=== PATIENT | male | born 1990 | race African-American/Black ===

== ENCOUNTER 2018-01-03 12:45 | Emergency (ER) | payer SELFPAY ==
[~2018-01-03] VITALS: Ht 188 cm; Wt 72.7 kg
[~2018-01-03 12:45] MED LIST: ACULAR 0.5100 DROP/5 RIGHT EYE; AUGMENTIN500 MG PO; BACTRIM,SEPT1 TABLET PO; CLARITIN10 M4 PO; FLEXERIL10 MG PO; Habitrol,Nicoderm CQ TD; IBUPROFEN800 MG PO; Keflex PO; MOBIC15 MG PO; MOBIC7.5 MG PO; MOTRIN800 MG PO; NO MEDS; NOHOMEMEDS; PERCOCET 5/31 TABLET PO; TOBREX3.5 GM BOTH EYES; TYLENOL REGULA325 MG PO; TYLENOL WITH C1 EACH PO; ULTRAM50 MG PO; VALIUM5 MG PO; VICODIN 5-3001 EACH PO; VIGAMOX 0.60 DROP/3 RIGHT EYE; no home med; non; oxyCODONE PO
[2018-01-03 15:14] VITALS: BP 109/79
== END 2018-01-03 15:16 | disposition home or self-care (01) ==
LOC: EME 12:45
DX: S93.602A Unspecified sprain of left foot, initial encounter (principal); V09.9XXA Pedestrian injured in unspecified transport accident, initial encounter; Z88.6 Allergy status to analgesic agent
CPT/HCPCS: 73610; 73630; 99281; 99283

== ENCOUNTER 2018-03-11 14:00 | Inpatient (IN) | payer OTHER ==
[~2018-03-11] VITALS: Ht 186.7 cm; Wt 60.0 kg
[2018-03-11 15:14] LABS: HEMATOCRIT 42.7 % (38.0-50.0); HEMOGLOBIN 15.6 G/DL (12.5-16.6); MCH 34.7 PG (29.0-34.0); MCHC 36.5 G/DL (30.0-36.0); MCV 95.1 FL (86-99); PLATELET COUNT 296 K/uL (156-360); RBC DIS.WIDTH-CV 11.7 % (11.8-14.6); RBC DIS.WIDTH-SD 40.8 % (39-53); RED BLOOD COUNT 4.49 M/uL (4.00-5.50); WHITE BLOOD COUNT 21.7 K/uL (4.1-10.2)
[2018-03-11 15:22] LABS: ALBUMIN 4.1 g/dL (3.2-4.8)
[2018-03-11 15:23] LABS: CHLORIDE 98 mEq/L (99-109); POTASSIUM 4.2 mEq/L (3.7-5.4); SODIUM 133 mEq/L (136-147)
[2018-03-11 15:25] LABS: GLUCOSE 91 mg/dL (70-99)
[2018-03-11 15:27] LABS: TOTAL BILIRUBIN 0.8 mg/dL (0.0-1.0)
[2018-03-11 15:28] LABS: ALKALINE PHOSPHATASE 134 IU/L (3-129)
[2018-03-11 15:29] LABS: CREATININE 0.7 mg/dL (0.6-1.3); GFR ESTIMATE (CALCULATED) > 59 mL/min/ (58.99-99999)
[2018-03-11 15:30] LABS: AST (GOT) 16 IU/L (2-34); UREA NITROGEN (BUN) 7 mg/dL (9-23)
[2018-03-11 15:32] LABS: ALT (GPT) 15 IU/L (3-49)
[2018-03-11 20:38] VITALS: BP 164/90
[2018-03-11 22:40] VITALS: BP 134/85
[2018-03-12 07:04] VITALS: BP 120/74
[2018-03-12 12:29] LABS: BASOPHIL (%) 0.2 % (0-1); EOSINOPHIL (%) 0.1 % (0-5); HEMATOCRIT 40.9 % (38.0-50.0); HEMOGLOBIN 14.2 G/DL (12.5-16.6); IMMATURE GRANULOCYTE (%) 0.5 % (0.0-0.7); LYMPHOCYTE (%) 8.1 % (15-42); LYMPHOCYTE COUNT 1.3 K/uL (1.0-2.8); MCH 33.7 PG (29.0-34.0); MCHC 34.7 G/DL (30.0-36.0); MCV 97.1 FL (86-99); MONOCYTE (%) 7.8 % (3-12); MONOCYTE COUNT 1.2 K/uL (0-0.8); NEUTROPHIL (%) 83.3 % (45-76); NEUTROPHIL COUNT 12.9 K/uL (1.8-6.4); PLATELET COUNT 287 K/uL (156-360); RBC DIS.WIDTH-CV 11.9 % (11.8-14.6); RBC DIS.WIDTH-SD 42.2 % (39-53); RED BLOOD COUNT 4.21 M/uL (4.00-5.50); WHITE BLOOD COUNT 15.5 K/uL (4.1-10.2)
[2018-03-12 13:00] LABS: CHLORIDE 105 MEQ/L (99-109); CREATININE 0.7 MG/DL (0.6-1.3); GFR ESTIMATE (CALCULATED) > 59 mL/min/ (58.99-99999); GLUCOSE 81 mg/dL (70-99); POTASSIUM 4.2 MEQ/L (3.7-5.4); SODIUM 139 MEQ/L (136-147); UREA NITROGEN (BUN) 10 mg/dL (9-23)
[2018-03-12 13:19] VITALS: BP 120/74
== END 2018-03-12 13:36 | disposition left against medical advice (07) | DRG 872 ==
LOC: EME 14:00 → EDOF 18:57 → ENRESERV 19:00 → 5EAST 20:33
PROVIDERS: Hospitalist; Physician Assistant
DX: A41.9 Sepsis, unspecified organism (principal); L03.211 Cellulitis of face; M27.2 Inflammatory conditions of jaws; K04.7 Periapical abscess without sinus; F17.210 Nicotine dependence, cigarettes, uncomplicated; F17.200 Nicotine dependence, unspecified, uncomplicated; E87.1 Hypo-osmolality and hyponatremia; Z68.1 Body mass index [BMI] 19.9 or less, adult; Z53.21 Procedure and treatment not carried out due to patient leaving prior to being seen by health care provider
CPT/HCPCS: 70487; 80048; 80053; 83605; 85025; 85027; 87040; 99281; 99285; J1170; J1885; J2543; J3010; J3370; J7030; J7050